=== PATIENT | female | born 1995 | race African-American/Black ===

== ENCOUNTER 2019-05-02 02:44 | Emergency (ER) | payer OTHER ==
[~2019-05-02] VITALS: Ht 175.3 cm; Wt 117.6 kg
[2019-05-02] MEDS ORDERED: ALBUTEROL SUL0.083 % IN (02:59)
[2019-05-02] MEDS ORDERED: VENTOLIN HFA IN (03:00)
[2019-05-02 03:21] LABS: HEMATOCRIT 30.7 % (37.0-47.0); HEMOGLOBIN 9.8 g/dl (12.0-16.0); IMMATURE GRANULOCYTES 0.3 % (0.0-5.0); MEAN CELL VOLUME 78.5 fL CALC (80.0-100.0); MEAN CORPUSCULAR HGB 25.1 pG CALC (26.0-32.0); MEAN CORPUSCULAR HGB CONC 31.9 g/L CALC (32.0-36.0); NEUT# 1.71 thou/uL (2.00-7.15); RED BLOOD COUNT 3.91 mill/uL (4.20-5.60); RED CELL DISTRI WIDTH 18.2 % (11.5-15.5)
--- NOTE | 2019-05-02 03:21 | NUR ---
BREATHING TREATMENT GIVEN BACK TO BACK WITH UNIT DOSE DUONEB AND 2 UNIT DOSE ALBUTEROL. BREATHING TECH. FOR GOOD DEPOSITION TO THE LUNGS.
[2019-05-02 03:26] LABS: ALBUMIN 4.4 g/dL (3.2-5.0); ALKALINE PHOSPHATASE 80 u/l (38-126); ANION GAP 15 (6-22 (CALC)); BILIRUBIN, TOTAL 0.3 mg/dL (0.0-1.4); BUN 11 mg/dL (7-17); BUN/CREATININE RATIO 15 (12-20 (CALC)); CARBON DIOXIDE 23 mmol/l (22-30); CHLORIDE 106 mmol/l (95-108); CREATININE 0.8 mg/dL (0.5-1.0); GFR > 60 ML/MIN (>=60 (CALC)); GFR FOR AFR.AMER. > 60 ML/MIN (>=60 (CALC)); POTASSIUM 3.9 mmol/l (3.5-5.1); SGOT/AST 19 u/l (14-36); SODIUM 140 mmol/l (137-146); TOTAL PROTEIN 7.6 g/dL (6.3-8.2)
[2019-05-02] MEDS ORDERED: ADVAIR DISK1 IN (04:16)
[2019-05-02] MEDS ORDERED: PREDNISONE50 MG PO (04:16)
[2019-05-02 04:32] VITALS: BP 125/72
== END 2019-05-02 04:32 | disposition home or self-care (01) ==
LOC: ED 02:44
PROVIDERS: Family Medicine
DX: J45.901 Unspecified asthma with (acute) exacerbation (principal); J20.8 Acute bronchitis due to other specified organisms; R06.02 Shortness of breath; R05 Cough; R06.2 Wheezing

== ENCOUNTER 2019-05-08 10:21 | Emergency (ER) | payer OTHER ==
[~2019-05-08] VITALS: Ht 175.3 cm; Wt 105.0 kg
[~2019-05-08 10:21] MED LIST: ADVAIR DISK1 IN; ALBUTEROL SUL0.083 % IN; PREDNISONE50 MG PO; VENTOLIN HFA IN
[2019-05-08] MEDS ORDERED: ZPAK PO (12:48)
[2019-05-08] MEDS ORDERED: ALBUTEROL SUL0.083 % IN (12:48)
[2019-05-08] MEDS ORDERED: ROBITUSSIN AC10 ML PO (12:49)
[2019-05-08 13:24] VITALS: BP 107/83
== END 2019-05-08 13:25 | disposition home or self-care (01) ==
LOC: ED 10:21
DX: J45.909 Unspecified asthma, uncomplicated (principal); T48.6X6A Underdosing of antiasthmatics, initial encounter; Z91.128 Patient's intentional underdosing of medication regimen for other reason; R06.02 Shortness of breath; R05 Cough; J02.9 Acute pharyngitis, unspecified

== ENCOUNTER 2023-02-21 11:11 | Emergency (ER) | payer OTHER ==
[~2023-02-21] VITALS: Ht 175.3 cm; Wt 123.0 kg
[~2023-02-21 11:11] MED LIST changes: +ROBITUSSIN AC10 ML PO; +ZPAK PO
[2023-02-21] MEDS ORDERED: ZYRTEC10 MG PO (12:34)
[2023-02-21] MEDS ORDERED: ZPAK PO (12:34)
[2023-02-21] MEDS ORDERED: MEDDOSEPAK PO (12:34)
[2023-02-21 12:48] VITALS: BP 109/70
== END 2023-02-21 13:05 | disposition home or self-care (01) ==
LOC: ED 11:11
DX: J98.8 Other specified respiratory disorders (principal); J45.909 Unspecified asthma, uncomplicated; Z20.822 Contact with and (suspected) exposure to COVID-19

== ENCOUNTER 2023-05-04 11:26 | Emergency (ER) | payer OTHER ==
[~2023-05-04 11:26] MED LIST changes: +MEDDOSEPAK PO; +ZYRTEC10 MG PO
== END 2023-05-04 11:50 | disposition left against medical advice (07) | DRG 951 ==
LOC: ED 11:26 → LWOBS 11:50
DX: Z53.21 Procedure and treatment not carried out due to patient leaving prior to being seen by health care provider (principal)